=== PATIENT | female | born 2000 | race African-American/Black ===

== ENCOUNTER 2021-11-27 17:33 | Emergency (ER) | payer OTHER, SELFPAY ==
--- NOTE | ~2021-11-27 | CT_ITS ---
EXAMINATION: CT abdomen pelvis w con DATE: 11/27/2021 21:58 INDICATION: abd pain TECHNIQUE: Computed tomography (CT) of the abdomen and pelvis was performed with 100 mL Omnipaque-350 intravenous contrast. Automated exposure control and iterative reconstruction technique were employe d. The dose-length product was 1001.92 mGy-cm. COMPARISON: None. FINDINGS: Lower thorax: Unremarkable Liver: Normal. Biliary/Gallbladder: Gallbladder is absent. No bile duct dilation. Pancreas: No mass or duct dilation. Spleen: Normal. Adrenals:No mass. Kidneys: No mass, stone, or hydronephrosis. GI tract: No small or large bowel dilation. Normal appendix. Mesentery/Peritoneum: No ascites, mass, or free air. Retroperitoneum: No mass. Pelvis: Retroverted uterus, otherwise the pelvic organs are within normal limits. The distal ureters are difficult to trace accurately due to uterine position. Punctate calcification near the right UVJ. Soft Tissues: Soft tissues and body wall unremarkable. Bones: No acute osseous finding. IMPRESSION: No definite acute abdominopelvic process detected. Distal ureters are poorly visualized. Punctate everett cification near the right UVJ could be in the pathway of the right distal ureter, however there is no hydronephrosis or inflammatory change in the right collecting system. Reviewed, dictated and finalized at location K. IMPRESSION: No definite acute abdominopelvic process detected. Distal ureters are poorly vi sualized. Punctate calcification near the right UVJ could be in the pathway of the right distal ureter, however there is no hydronephrosis or inflammatory jailene nge in the right collecting system.
[2021-11-27 17:47] VITALS: BP 101/61; PULSE 93; RESP 18; TEMP 36.4; O2SAT 100
[2021-11-27 18:14] LABS: Basophils Percent Auto 0.4 % (0.2-1.2); Eosinophils Absolute Auto 0.1 K/mm3 (0-0.3); Eosinophils Percent Auto 1.1 % (0-4.4); Hematocrit 44.6 % (37.0-47.0); Hemoglobin 14.4 g/dL (12.0-15.0); Immature Granulocyte Absolute 0.05 K/mm3 (0.00-0.031); Immature Granulocyte Percent A 0.5 % (0-0.5); Lymphocytes Absolute Auto 1.74 K/mm3 (0.9-3.2); Lymphocytes Percent Auto 17.1 % (18.3-44.2); Mean Corpuscular HGB Conc 32.3 g/dl (32-36); Mean Corpuscular Volume 95.9 fl (80-100); Mean Platelet Volume 9.8 fl (7.4-10.4); Monocytes Absolute Auto 0.7 K/mm3 (0.1-0.6); Neutrophils Absolute Auto 7.5 K/mm3 (1.3-6.7); Neutrophils Percent Auto 73.9 % (45.5-73.1); Platelet Count Result 279 k/mm3 (150-375); Red Blood Count 4.65 M/mm3 (4.2-5.4); Red Cell Distribution Width 12.5 % (11.5-14.5); White Blood Count 10.2 K/mm3 (4.5-10.0)
[2021-11-27 18:17] LABS: Appearance Urine Clear (Clear); Bilirubin Urine Negative (Negative); Blood Urine Negative (Negative); Color Urine Yellow (Yellow); Glucose Urine UA Negative (Negative); Ketones Urine Negative (Negative); Leukocyte Esterase Ur Trace LEU/UL (Negative); Nitrate Urine Negative (Negative); Protein Urine Negative (Negative); Specific Grav Ur 1.015 (1.001-1.035); Urobilinogen Urine 0.2 mg/dL (<2.0)
[2021-11-27 18:27] LABS: Alanine Aminotransferase 62 U/L (6-35); Albumin Level 4.6 g/dL (3.5-5.1); Alkaline Phosphatase 77 U/L (38-126); Anion Gap 8 mmol/L (8-16); Aspartate Amino Transferase 53 U/L (14-36); Bilirubin,Total 0.5 mg/dL (0.2-1.3); Blood Urea Nitrogen 4 mg/dL (7-17); Calcium 9.7 mg/dL (8.4-10.2); Carbon Dioxide 31 mmol/L (22-30); Chloride 96 mmol/L (98-107); Estimated CRCL calculation 152 ml/min; Estimated Glomerular Filt Rate > 60; Glucose 100 mg/dL (65-110); Lipase 46 U/L (23-300); Potassium 3.6 mmol/L (3.4-5.0); Sodium 135 mmol/L (137-145)
[2021-11-27 18:28] LABS: Mucus Urine Rare /lpf; RBC Urine 0-2 /hpf (0-2); Squamous Epithelial Cell Urine Occasional /hpf (Few); WBC Urine 0-3 /hpf
[2021-11-27 18:45] LABS: Add Urine Microscopic? NO
--- NOTE | 2021-11-27 21:11 | ED.ABDPAIN ---
HPI - Abdominal Pain General Chief Complaint: Abdominal Pain <Caprice Kerr PA-C - Last Filed: 11/27/21 22:26> Stated Complaint: abd pain, back pain, frequent urination <Caprice Kerr PA-C - Last Filed: 11/27/21 22:26> Time Seen by Provider: 11/27/21 21:06 <Caprice Kerr PA-C - Last Filed: 11/27/21 22:26> Source: patient <ABHAY Valentino Last Filed: 11/27/21 22:26> Mode of arrival: ambulatory <Caprice Kerr PA-C - Last Filed: 11/27/21 22:26> Limitations: no limitations <Caprice Kerr PA-C - Last Filed: 11/27/21 22:26> History of Present Illness HPI narrative: This is a 20 year old female that presents to the ER for abdominal pain present today. Associated with back pain and urinary frequency. Denies fever, vomiting or hematuria. <Caprice Kerr PA-C - Last Filed: 11/27/21 22:26> Related Data Allergies/Adverse Reactions: Allergies Allergy/AdvReac Type Severity Reaction Status Date / Time No Known Allergies Allergy Verified 11/27/21 17:53 <Caprice Kerr PA-C - Last Filed: 11/27/21 22:26> Review of Systems Review of Systems: CONSTITUTIONAL: Denies fever GASTROINTESTINAL: Reports abdominal pain. Denies nausea, vomiting, or diarrhea. GENITOURINARY: Denies dysuria or hematuria. <Caprice Kerr PA-C - Last Filed: 11/27/21 22:26> All systems reviewed & are unremarkable except as noted in HPI and below <Caprice Kerr PA-C - Last Filed: 11/27/21 22:26> [facility] Past Medical History Medical History: Medical History (Updated 11/28/21 @ 00:00 by Donita Reed) No active medical problems <Caprice Kerr PA-C - Last Filed: 11/27/21 22:26> Social History Social History: Social History (Updated 11/27/21 @ 21:13 by Caprice Kerr PA-C) Smoking status: Never smoker <Caprice Kerr PA-C - Last Filed: 11/27/21 22:26> Exam Narrative: GENERAL: Well-appearing, well-nourished, and in no acute distress. HEAD: Normocephalic, atraumatic. EYES: EOMI. CHEST: Clear to auscultation. No respiratory distress. No wheezes rales or rhonchi HEART: Regular rate and rhythm. No murmur heard. Normal peripheral pulses. ABDOMEN: Soft, nondistended, normal active bowel sounds. Mild tenderness palpation in epigastrium, without guarding. No CVA tenderness BACK: Tender to palpation of right thoracic paraspinal musculature EXTREMITIES: Normal range of motion. No edema. SKIN: Warm, dry, no rash. NEURO: No focal deficits. Alert and oriented x3. PSYCH: Normal mood and affect <Caprice Kerr PA-C - Last Filed: 11/27/21 22:26> Course DIRECTOR OF FOOD AND NUTRITION/PA Physician Supervision For this patient encounter, I reviewed the DIRECTOR OF FOOD AND NUTRITION or PA documentation, treatment plan, and medical decision making <Mike Donahue MD - Last Filed: 11/28/21 03:15> Vital Signs Vital signs: Vital Signs Temperature 97.6 F 11/27/21 17:47 Pulse Rate 93 11/27/21 17:47 Respiratory Rate 18 11/27/21 17:47 Blood Pressure 101/61 11/27/21 17:47 Pulse Oximetry 100 11/27/21 17:47 Oxygen Delivery Room Air 11/27/21 17:47 Temperature 97.6 F 11/27/21 17:47 Pulse Rate 84 11/27/21 23:06 Respiratory Rate 17 11/27/21 23:06 Blood Pressure 132/73 11/27/21 23:06 Pulse Oximetry 96 11/27/21 23:06 Oxygen Delivery Room Air 11/27/21 17:47 <Caprice Kerr PA-C - Last Filed: 11/27/21 22:26> Vital Signs Temperature 97.6 F 11/27/21 17:47 Pulse Rate 93 11/27/21 17:47 Respiratory Rate 18 11/27/21 17:47 Blood Pressure 101/61 11/27/21 17:47 Pulse Oximetry 100 11/27/21 17:47 Oxygen Delivery Room Air 11/27/21 17:47 Temperature 97.6 F 11/27/21 17:47 Pulse Rate 84 11/27/21 23:06 Respiratory Rate 17 11/27/21 23:06 Blood Pressure 132/73 11/27/21 23:06 Pulse Oximetry 96 11/27/21 23:06 Oxygen Delivery Room Air 11/27/21 17:47 <Mike Donahue MD - Last Filed: 11/28/21 03:15> MDM - Abdominal Pain MDM Narrati
[2021-11-27] MEDS: FAMOTIDINE 20 MG/2 ML VIAL IV PUSH (21:35)
[2021-11-27 23:06] VITALS: BP 132/73; PULSE 84; RESP 17; O2SAT 96
== END 2021-11-27 23:07 | disposition home or self-care (01) ==
PROVIDERS: Family Medicine; Emergency Provider Emergency Medicine
DX: R10.9 Unspecified abdominal pain (principal)
CPT/HCPCS: 36415; 74177; 80053; 81003; 81025; 83690; 85025; 96365; 96375; 99284; J0131; Q9967

== ENCOUNTER 2022-05-19 23:48 | Observation (INO) | payer OTHER, SELFPAY ==
[2022-05-20] VITALS (8 sets, daily range): BP systolic 92–126; BP diastolic 61–75; PULSE 75–99; RESP 15–16; TEMP 36.6–36.7; O2SAT 100; BMI 37.1
--- NOTE | 2022-05-20 00:04 | ED.ABDPAIN ---
HPI - Abdominal Pain General Chief Complaint: Vaginal Bleeding Stated Complaint: Vaginal Bleeding Time Seen by Provider: 05/19/22 23:50 History of Present Illness HPI narrative: 21-year-old female presented to the emergency department from an outside hospital for evaluation of persistent vaginal bleeding after elective . Patient was approximate 9 weeks and on the was started on Cytotec. Patient started taking the Cytotec on the . Patient states she has had some vaginal bleeding since then. Patient states up until Friday she was just having spotting but since Friday she had more heavy vaginal bleeding. Patient initially presented to an outside hospital and due to the concern for heavy vaginal bleeding and no access to ultrasound patient was transferred to our emergency department and to be seen by OB. Upon arrival to the emergency department patient is denying any abdominal complaints at this time. Patient does report headache. Patient also believes that her vaginal bleeding has improved. Related Data Allergies Allergy/AdvReac Type Severity Reaction Status Date / Time No Known Allergies Allergy Verified 11/27/21 17:53 Review of Systems Review of Systems: CONSTITUTIONAL: Denies fever, chills, or sweats. EYES: Denies visual changes, redness, or discharge. ENT: Denies rhinorrhea, congestion, sore throat, or otalgia. CARDIOVASCULAR: Denies chest pain, palpitations, or edema. RESPIRATORY: Denies cough or dyspnea. GASTROINTESTINAL: Denies abdominal pain, nausea, vomiting, or diarrhea. GENITOURINARY: See HPI SKIN: Denies rash or itching. MUSCULOSKELETAL: Denies back pain, joint pain, or myalgia. NEUROLOGIC: See HPI PMFSH Past Medical History Medical History (Updated 05/20/22 @ 01:13 by Mike Donahue MD) No active medical problems Social History Social History (Updated 11/27/21 @ 21:13 by Caprice Kerr PA-C) Smoking status: Never smoker Exam Narrative: APPEARANCE: Well appearing, no pain, no distress, well-nourished. HEAD: normocephalic, atraumatic. EYES: PERRLA/EOMI, conjunctivae clear. NOSE: Normal no drainage NECK: Supple. No adenopathy, no masses. RESPIRATORY: Airway patent, respirations nonlabored. Clear to auscultation bilaterally, no rales, rhonchi, wheezing. CARDIOVASCULAR: Regular rate and rhythm without murmurs rubs or gallops. ABDOMINAL: Soft, nontender, nondistended, normal bowel sounds Genitourinary: No significant vaginal bleeding. No large amount of clot in the vaginal vault. No refilling of the vaginal vault. MUSCULOSKELETAL: Moves all extremities. Strength/ROM intact, No edema, No calf tenderness. NEURO: Alert. Cranial nerves II through XII intact. SKIN: Warm, dry. Normal Color Course Course Emergency Course: Patient's undergarment that she wore during transport had no large clots but was blood-tinged. On pelvic exam patient had no large vaginal clots. Case was discussed with OB and they wanted the patient to be started on misoprostol admitted for observation, provided Mill[place] and Zofran for pain control with a CBC and quant in the morning. Patient was updated on the plan for admission. Patient's vital signs were stable and patient was in no distress at time of admission. Patient's hemoglobin was measured at 11.3 at the outside hospital and was down to 10.2 on my recheck. Type and screen was ordered. Vital Signs Vital signs: Vital Signs Pulse Rate 95 05/20/22 00:04 Respiratory Rate 16 05/20/22 00:04 Blood Pressure 124/74 05/20/22 00:04 Pulse Oximetry 100 05/20/22 00:04 Pulse Rate 86 05/20/22 00:32 Respiratory Rate 16 05/20/22 00:32 Blood Pressure 126/63 05/20/22 00:32 Pulse Oximetry 100 05/20/22 00:32 Oxygen Delivery Room Air 05/20/22 00:06 MDM - Abdominal Pain Lab Data 05/20/22 00:14 05/20/22 00:14 Discharge Plan Discharge Clinical Impression: Vaginal bleeding Patient Disposition:
[2022-05-20 00:27] LABS: Basophils Percent Auto 0.2 % (0.2-1.2); Eosinophils Absolute Auto 0.1 K/mm3 (0-0.3); Eosinophils Percent Auto 0.5 % (0-4.4); Hematocrit 30.2 % (37.0-47.0); Hemoglobin 10.2 g/dL (12.0-15.0); Immature Granulocyte Absolute 0.06 K/mm3 (0.00-0.031); Immature Granulocyte Percent A 0.5 % (0-0.5); Lymphocytes Absolute Auto 1.27 K/mm3 (0.9-3.2); Lymphocytes Percent Auto 10.6 % (18.3-44.2); Mean Corpuscular HGB Conc 33.8 g/dl (32-36); Mean Corpuscular Hemoglobin 32.1 pg (26-34); Mean Platelet Volume 9.7 fl (7.4-10.4); Monocytes Absolute Auto 0.8 K/mm3 (0.1-0.6); Monocytes Percent Auto 6.6 % (2.6-8.5); Neutrophils Absolute Auto 9.8 K/mm3 (1.3-6.7); Neutrophils Percent Auto 81.6 % (45.5-73.1); Platelet Count Result 261 k/mm3 (150-375); Red Blood Count 3.18 M/mm3 (4.2-5.4)
[2022-05-20] MEDS: ONDANSETRON INJ 4 MG/2 ML VIAL IV PUSH (00:33)
[2022-05-20] MEDS: SODIUM CHLORIDE 0.9% IV 1,000 ML 999 ML IV CONT (00:33)
[2022-05-20 00:38] LABS: Alanine Aminotransferase 22 U/L (6-35); Albumin Level 3.8 g/dL (3.5-5.1); Alkaline Phosphatase 62 U/L (38-126); Anion Gap 6 mmol/L (8-16); Aspartate Amino Transferase 24 U/L (14-36); Bilirubin,Total 0.5 mg/dL (0.2-1.3); Blood Urea Nitrogen 3 mg/dL (7-17); Calcium 8.3 mg/dL (8.4-10.2); Carbon Dioxide 27 mmol/L (22-30); Chloride 99 mmol/L (98-107); Estimated CRCL calculation 151 ml/min; Estimated Glomerular Filt Rate > 60; Glucose 103 mg/dL (65-110); Potassium 3.5 mmol/L (3.4-5.0); Sodium 132 mmol/L (137-145)
[2022-05-20 00:40] LABS: INR 1.1; Prothrombin Time 14.1 Seconds (11.1-14.7)
[2022-05-20 00:41] LABS: Partial Thromboplastin Time 29.9 SECONDS (22.3-36.8)
[2022-05-20] MEDS: miSOPROStol 200 MCG TABLET 800 MCG VAGINAL (00:49)
--- NOTE | 2022-05-20 01:47 | PC.NURSE ---
Updated Dr. Contreras of patient arrival to OB for overnight observation. Patient vital signs WNL upon arrival. Plan of care discussed and clarified. Order received.
[2022-05-20] MEDS: SODIUM CHLORIDE 0.9% IV 1,000 ML 125 ML IV CONT (03:02)
[2022-05-20 04:55] LABS: Basophils Percent Auto 0.2 % (0.2-1.2); Eosinophils Absolute Auto 0.1 K/mm3 (0-0.3); Eosinophils Percent Auto 0.6 % (0-4.4); Hematocrit 25.4 % (37.0-47.0); Hemoglobin 8.4 g/dL (12.0-15.0); Immature Granulocyte Absolute 0.04 K/mm3 (0.00-0.031); Immature Granulocyte Percent A 0.4 % (0-0.5); Lymphocytes Absolute Auto 1.45 K/mm3 (0.9-3.2); Lymphocytes Percent Auto 14.6 % (18.3-44.2); Mean Corpuscular HGB Conc 33.1 g/dl (32-36); Mean Corpuscular Hemoglobin 31.9 pg (26-34); Mean Corpuscular Volume 96.6 fl (80-100); Mean Platelet Volume 9.9 fl (7.4-10.4); Monocytes Absolute Auto 0.9 K/mm3 (0.1-0.6); Monocytes Percent Auto 8.8 % (2.6-8.5); Neutrophils Absolute Auto 7.5 K/mm3 (1.3-6.7); Neutrophils Percent Auto 75.4 % (45.5-73.1); Platelet Count Result 220 k/mm3 (150-375); Red Blood Count 2.63 M/mm3 (4.2-5.4); Red Cell Distribution Width 13.1 % (11.5-14.5); White Blood Count 9.9 K/mm3 (4.5-10.0)
--- NOTE | 2022-05-20 05:39 | PC.NURSE ---
Notified Dr. Contreras of patient morning lab work results. Also notified of vital signs overnight. Patient having adequate urine output and small lochia. Patient denies any clots throughout the night. Pat is resting comfortably and denies any pain.
--- NOTE | 2022-05-24 11:22 | PM.GYNPNOP ---
SENIOR RESEARCH ASSOCIATE - A/P Assessment and plan (1) Vaginal bleeding: Code(s): N93.9 - Abnormal uterine and vaginal bleeding, unspecified Status: Acute Plan s/p miscarriage hemodynamicly stable Discharge home with pelvic rest precautions. Follow up in 2-4 weeks. Postoperative Postoperative status: doing well Time Spent With Patient Time: Total time spent is greater than 50% in coordination of care (as documented) at patient's floor/unit and/or counseling patient: Time with patient: less than 15 minutes SENIOR RESEARCH ASSOCIATE- PN:Subj Post-Op Subjective Date/time seen: - 744 Interval history: She denies complaints. No lightheadedness or dizziness. Has had minimal bleeding since admission. Exam Const: General: comfortable and no acute distress Eyes: General: appearance normal, both eyes and all related structures Resp: Effort & Inspection: normal respiratory effort GI: Other: nontender, no suprapubic tenderness : Other: perineum minimum bleeding on pad. Extrem: General: normal to inspection and no calf tenderness SENIOR RESEARCH ASSOCIATE - PN: Obj Data Labs 05/20/22 04:44 05/20/22 00:14 Amg Follow-up Billing Hospital Follow-up Hospital Follow-up: [address] [facility]
--- NOTE | 2022-05-24 11:49 | PM.OBTRLD ---
OB - Triage/Final Diagnosis Visit Information Comments/Additional reasons for admission: I have assessed the risk for this patient, Sandy Fritz, and determined that she would benefit from observation care. Evaluation Laboratory results: Laboratory Tests 05/20/22 05/20/22 05/20/22 00:14 00:14 00:14 WBC 12.0 H RBC 3.18 L Hgb 10.2 L D Hct 30.2 L MCV 95.0 MCH 32.1 MCHC 33.8 RDW 13.0 Plt Count 261 MPV 9.7 Immature Gran % (Auto) 0.5 Neut % (Auto) 81.6 H Lymph % (Auto) 10.6 L [place] % (Auto) 6.6 Eos % (Auto) 0.5 Baso % (Auto) 0.2 Lymph # (Auto) 1.27 [place] # (Auto) 0.8 H Eos # (Auto) 0.1 Baso # (Auto) 0.0 Abs Immat Gran (auto) 0.06 H Absolute Neuts (auto) 9.8 H Absolute Nucleated RBC 0.0 Nucleated RBC % 0.0 PT 14.1 INR 1.1 APTT 29.9 Sodium 132 L Potassium 3.5 Chloride 99 Carbon Dioxide 27 Anion Gap 6 L BUN 3 L Creatinine 0.60 L Estim Creat Clear Calc 151 Estimated GFR > 60 Glucose 103 Calcium 8.3 L Total Bilirubin 0.5 AST 24 ALT 22 Alkaline Phosphatase 62 Total Protein 7.0 Albumin 3.8 Beta HCG, Quant 2832.10 Blood Type Antibody Screen 05/20/22 05/20/22 05/20/22 00:14 04:44 04:44 WBC 9.9 RBC 2.63 L Hgb 8.4 L Hct 25.4 L MCV 96.6 MCH 31.9 MCHC 33.1 RDW 13.1 Plt Count 220 MPV 9.9 Immature Gran % (Auto) 0.4 Neut % (Auto) 75.4 H Lymph % (Auto) 14.6 L [place] % (Auto) 8.8 H Eos % (Auto) 0.6 Baso % (Auto) 0.2 Lymph # (Auto) 1.45 [place] # (Auto) 0.9 H Eos # (Auto) 0.1 Baso # (Auto) 0.0 Abs Immat Gran (auto) 0.04 H Absolute Neuts (auto) 7.5 H Absolute Nucleated RBC 0.0 Nucleated RBC % 0.0 PT INR APTT Sodium Potassium Chloride Carbon Dioxide Anion Gap BUN Creatinine Estim Creat Clear Calc Estimated GFR Glucose Calcium Total Bilirubin AST ALT Alkaline Phosphatase Total Protein Albumin Beta HCG, Quant 2430.10 Blood Type A Positive Antibody Screen Negative Final Diagnosis (1) Incomplete : Code(s): O03.4 - Incomplete spontaneous without complication Status: Acute
== END 2022-05-20 09:34 | disposition home or self-care (01) ==
LOC: ANHED 05-20 00:07 → ANHLDR 05-20 00:31
PROVIDERS: Admitting Provider Obstetrics & Gynecology; Emergency Provider Emergency Medicine; Visit Provider Obstetrics & Gynecology
DX: O07.1 Delayed or excessive hemorrhage following failed attempted termination of pregnancy (principal); R51.9 Headache, unspecified
CPT/HCPCS: 36415; 80053; 84702; 85025; 85610; 85730; 86850; 86900; 86901; 96361; 96374; 99285; A9270; G0378; G0379; J2405; J7030

== ENCOUNTER 2025-03-06 20:50 | Emergency (ER) | payer OTHER, SELFPAY ==
--- OUTSIDE RECORDS SUMMARY | 2024-06-09 03:00 | XMS_ITS ---
Author Organization [facility]ly [facility], later [facility] Address [address] [place] [address] Care Team Providers Care Environmental Protection Forester Name Role Phone Ashok Guthrie Primary Care Provider REASON FOR VISIT Labs- and EKG Social History Sex Assigned At : Social History Observation Description Sex Assigned At Female Encounters Encounter Location Date Provider Diagnosis [address] [address] 06/09/2024 Ashok Guthrie Plan Of Treatment No Information Progress Notes * Sandy PHILLIPSDOB: [birth year] (24 yo F)Acc No.[id number]:06/09/2024 UNLOCKED PROGRESS NOTE Patient: Sandy KAUFMAN Provider: Moraima Guthrie :2000 A ge:23 Y S ex:Female Date:06/09/2024 [id number] Structured Data:Is there a n terrell you would prefer we call you? (Nombre que prefiere usar) : No Subjective: * Chief Complaints: * 1 . Labs- and EKG. * Medical History: Objective: * Vitals: Assessment: Plan: * Treatment: * * Electronic signature of Melba Guthrie , [id number] on 03/06/2025 at 08:53 PM EXHIBITIONS AND COLLECTIONS MANAGER Sign off status: Pending * Provider: Moraima Guthrie Date: 0 06/09/2024 Generated for Albertina leiva/Linnette/Olga on: 1 05/06/2024 08:53 PM EXHIBITIONS AND COLLECTIONS MANAGER
--- OUTSIDE RECORDS SUMMARY | 2024-06-11 03:00 | XMS_ITS ---
Author Organization [facility] Address [address] [place] [address] Care Team Providers Care Receiving And Processing Supervisor Name Role Phone Ashok Guthrie Primary Care Provider REASON FOR VISIT Labs and EKG Social History Sex Assigned At : Social History Observation Description Sex Assigned At Female Encounters Encounter Location Date Provider Diagnosis [address] [address] 06/11/2024 Ashok Guthrie Plan Of Treatment No Information Progress Notes * Sandy PHILLIPSDOB: [birth year] (24 yo F)Acc No.[id number]:06/11/2024 UNLOCKED PROGRESS NOTE Patient: Sandy KAUFMAN Provider: Moraima Guthrie :2000 A ge:23 Y S ex:Female Date:06/11/2024 [id number] Structured Data:Is there a n terrell you would prefer we call you? (Nombre que prefiere usar) : No Subjective: * Chief Complaints: * 1 . Labs and EKG. * Medical History: Objective: * Vitals: Assessment: Plan: * Treatment: * * Electronic signature of Melba Guthrie , [id number] on 03/06/2025 at 08:53 PM LOWERATOR OPERATOR Sign off status: Pending * Provider: Moraima Guthrie Date: 0 06/11/2024 Generated for Albertina leiva/Linnette/Olga on: 1 05/06/2024 08:53 PM LOWERATOR OPERATOR
--- OUTSIDE RECORDS SUMMARY | 2024-07-14 05:20 | XMS_ITS ---
Author Organization [facility] Address [address] [place] [address] Care Team Providers Care Covered Buckle Assembler Name Role Phone Ashok Guthrie Primary Care Provider [phone] REASON FOR VISIT 4 week F/U Social History Sex Assigned At : Social History Observation Description Sex Assigned At Female Encounters Encounter Location Date Provider Diagnosis [address] [address] 07/14/2024 Ashok Guthrie Plan Of Treatment No Information Progress Notes * Sandy PHILLIPSDOB: [birth year] (24 yo F)Acc No.[id number]:07/14/2024 UNLOCKED PROGRESS NOTE Progress Notes Patient: Sandy KAUFMAN Provider: Moraima Guthrie :2000 A ge:23 Y S ex:Female Date:07/14/2024 [id number] Structured Data:Is there a n terrell you would prefer we call you? (Nombre que prefiere usar) : No Subjective: * Chief Complaints: * 1 . 4 week F/U. * Medical History: Objective: * Vitals: Assessment: Plan: * Treatment: * * Electronic signature of Melba Guthrie , [id number] on 03/06/2025 at 08:53 PM INSULATION BLANKET MAKER Sign off status: Pending * Provider: Moraima Guthrie Date: 0 07/14/2024 Generated for Albertina leiva/Linnette/Olga on: 1 05/06/2024 08:53 PM INSULATION BLANKET MAKER
--- OUTSIDE RECORDS SUMMARY | 2024-12-22 18:00 | XMS_ITS | Continuity of Care Document ---
Author Organization [facility] Address [address] [place] [phone] Phone Care Team Providers Care Warehouse Shipping Clerk Name Role Phone Anitra GEORGE, FACC, Frank Unavailable Unavailab le Procedures Procedure Date ELECTROCARDIOGRAM REPORT Advance Directives Directive Yes / No Effective Date File Name No Information Encounters Encounter Description Practice Location Reason(s) For Visit Diagnoses Date Provider Providers Copied on Encounter [facility], [address] [place] [address], [id number], tel:[phone] [facility] ER No Information Anitra Marie. [address] [place] [address], [id number], . tel:[phone] Referring Provider: Frank Ayoub, [facility] [place], [address]. tel:[phone] Family History Family Member Type Diagnosis Age At Onset No Information Payers Payer name Insurance type Covered alliance party ID Authoriza tion(s) [employer]ETNA [facility] CI [id number] Social History Type Description Quantity Date Captured Comments Sex Female Smoking Status No Information Chief Complaint And Reason For Visit No Information Reason For Referral Reason For Referral No Information History Of Present Illness Encounter Date Complaint History Of Prese nt Illness No Information Functional Status Date Functional Assessmen t No Information Instructions Date Instruction Additional Infor mation No Information Assessments Type Assessment Date No Information Patient Care Teams Name Effective Dates (start - stop) Status Members No Information
--- OUTSIDE RECORDS SUMMARY | 2024-12-22 18:00 | XMS_ITS | Continuity of Care Document ---
Author Organization [facility] Address [address] [place] [phone] Phone Care Team Providers Care Nurse Transplant Name Role Phone Anitra GEORGE, FACC, Frank Unavailable Unavailab le Procedures Procedure Date ELECTROCARDIOGRAM REPORT Advance Directives Directive Yes / No Effective Date File Name No Information Encounters Encounter Description Practice Location Reason(s) For Visit Diagnoses Date Provider Providers Copied on Encounter [facility], [address] [place] [address], [id number], tel:[phone] [facility] ER No Information Anitra Marie. [address] [place] [address], [id number], . tel:[phone] Referring Provider: Frank Ayoub, [facility] [place], [address]. tel:[phone] Family History Family Member Type Diagnosis Age At Onset No Information Payers Payer name Insurance type Covered democrat ID Authoriza tion(s) AETNA [facility] CI [id number] Social History Type Description Quantity Date Captured [...]
--- OUTSIDE RECORDS SUMMARY | 2024-12-22 18:00 | XMS_ITS | Continuity of Care Document ---
Author Organization [facility] Address [address] [place] [phone] Phone Care Team Providers Care Can Crimper Name Role Phone Anitra GEORGE, FACC, Frank Unavailable Unavailab le Procedures Procedure Date ELECTROCARDIOGRAM REPORT Advance Directives Directive Yes / No Effective Date File Name No Information Encounters Encounter Description Practice Location Reason(s) For Visit Diagnoses Date Provider Providers Copied on Encounter [facility], [address] [place] [address], [id number], tel:[phone] [facility] ER No Information Anitra Marie. [address] [place] [address], [id number], . tel:[phone] Referring Provider: Frank Ayoub, [facility] [place], [address]. tel:[phone] Family History Family Member Type Diagnosis Age At Onset No Information Payers Payer name Insurance type Covered democrat ID Authoriza tion(s) [employer] [facility] CI [id number] Social History Type Description Quantity Date Captured [...]
--- OUTSIDE RECORDS SUMMARY | 2024-12-22 18:00 | XMS_ITS | Continuity of Care Document ---
Author Organization [facility] Address [address] [place] [phone] Phone Care Team Providers Care Belt Cleaner Name Role Phone Anitra GEORGE, FACC, Frank Unavailable Unavailab le Procedures Procedure Date ELECTROCARDIOGRAM REPORT Advance Directives Directive Yes / No Effective Date File Name No Information Encounters Encounter Description Practice Location Reason(s) For Visit Diagnoses Date Provider Providers Copied on Encounter [facility], [address] [place] [address], [id number], tel:[phone] [facility] ER No Information Anitra Marie. [address] [place] [address], [id number], . tel:[phone] Referring Provider: Frank Ayoub, [facility] [place], [address]. tel:[phone] Family History Family Member Type Diagnosis Age At Onset No Information Payers Payer name Insurance type Covered alliance party ID Authoriza tion(s) [employer] [facility] CI [id number] Social History Type Description Quantity Date Captured [...]
--- OUTSIDE RECORDS SUMMARY | 2024-12-22 18:00 | XMS_ITS | Continuity of Care Document ---
Author Organization [facility] Address [address] [place] [phone] Phone Care Team Providers Care Transplant Nurse Practitioner Name Role Phone Anitra GEORGE, FACC, Frank Unavailable Unavailab le Procedures Procedure Date ELECTROCARDIOGRAM REPORT Advance Directives Directive Yes / No Effective Date File Name No Information Encounters Encounter Description Practice Location Reason(s) For Visit Diagnoses Date Provider Providers Copied on Encounter [facility], [address] [place] [address], [id number], tel:[phone] [facility] ER No Information Anitra Marie. [address] [place] [address], [id number], . tel:[phone] Referring Provider: Frank Ayoub, [facility] [place], [address]. tel:[phone] Family History Family Member Type Diagnosis Age At Onset No Information Payers Payer name Insurance type Covered green party ID Authoriza tion(s) [employer] [facility] CI [id number] Social History Type Description Quantity Date Captured [...]
--- OUTSIDE RECORDS SUMMARY | 2024-12-22 18:00 | XMS_ITS | Continuity of Care Document ---
Author Organization [facility] Address [address] [place] [phone] Phone Care Team Providers Care Automotive Electrician Helper Name Role Phone Anitra GEORGE, FACC, Frank Unavailable Unavailab le Procedures Procedure Date ELECTROCARDIOGRAM REPORT Advance Directives Directive Yes / No Effective Date File Name No Information Encounters Encounter Description Practice Location Reason(s) For Visit Diagnoses Date Provider Providers Copied on Encounter [facility], [address] [place] [address], [id number], tel:[phone] [facility] No Information Anitra Marie. [address] [place] [address], [id number], . tel:[phone] Referring Provider: Frank Ayoub, [facility] [place], [address]. tel:[phone] Family History Family Member Type Diagnosis Age At Onset No Information Payers Payer name Insurance type Covered alliance party ID Authoriza tion(s) AETNA [facility] CI [id number] Social History Type Description Quantity Date Captured [...]
--- OUTSIDE RECORDS SUMMARY | 2024-12-22 18:00 | XMS_ITS | Continuity of Care Document ---
Author Organization [facility] Address [address] [place] [phone] Phone Care Team Providers Care Hotel Or Motel Room Service Supervisor Name Role Phone Anitra GEORGE, FACC, Frank Unavailable Unavailab le Procedures Procedure Date ELECTROCARDIOGRAM REPORT Advance Directives Directive Yes / No Effective Date File Name No Information Encounters Encounter Description Practice Location Reason(s) For Visit Diagnoses Date Provider Providers Copied on Encounter [facility], [address] [place] [address], [id number], tel:[phone] [facility] ER No Information Anitra Marie. [address] [place] [address], [id number], . tel:[phone] Referring Provider: Frank Ayoub, [facility] [place], [address]. tel:[phone] Family History Family Member Type Diagnosis Age At Onset No Information Payers Payer name Insurance type Covered constitution party ID Authoriza tion(s) AETNA [facility] CI [id number] Social History Type Description Quantity Date Captured [...]
--- OUTSIDE RECORDS SUMMARY | 2024-12-22 18:00 | XMS_ITS | Continuity of Care Document ---
Author Organization [facility] Address [address] [place] [phone] Phone Care Team Providers Care Fun House Operator Name Role Phone Anitra GEORGE, FACC, Frank Unavailable Unavailab le Procedures Procedure Date ELECTROCARDIOGRAM REPORT Advance Directives Directive Yes / No Effective Date File Name No Information Encounters Encounter Description Practice Location Reason(s) For Visit Diagnoses Date Provider Providers Copied on Encounter [facility], [address] [place] [address], [id number], tel:[phone] [facility] ER No Information Anitra Marie. [address] [place] [address], [id number], . tel:[phone] Referring Provider: Frank Ayoub, [facility] [place], [address]. tel:[phone] Family History Family Member Type Diagnosis Age At Onset No Information Payers Payer name Insurance type Covered constitution party ID Authoriza tion(s) AETNA [facility] CI [id number] Social History Type Description Quantity Date Captured [...]
--- OUTSIDE RECORDS SUMMARY | 2024-12-22 18:00 | XMS_ITS | Continuity of Care Document ---
Author Organization [facility] Address [address] [place] [phone] Phone Care Team Providers Care Crop Duster Name Role Phone Anitra GEORGE, FACC, Frank Unavailable Unavailab le Procedures Procedure Date ELECTROCARDIOGRAM REPORT Advance Directives Directive Yes / No Effective Date File Name No Information Encounters Encounter Description Practice Location Reason(s) For Visit Diagnoses Date Provider Providers Copied on Encounter [facility], [address] [place] [address], [id number], tel:[phone] [facility] ER No Information Anitra Marie. [address] [place] [address], [id number], . tel:[phone] Referring Provider: Frank Ayoub, [facility] [place], [address]. tel:[phone] Family History Family Member Type Diagnosis Age At Onset No Information Payers Payer name Insurance type Covered constitution party ID Authoriza tion(s) AETNA [facility] CI [id number] Social History Type Description Quantity Date Captured [...]
--- OUTSIDE RECORDS SUMMARY | 2024-12-22 18:00 | XMS_ITS | Continuity of Care Document ---
Author Organization [facility] Address [address] [place] [phone] Phone Care Team Providers Care Geophysical Engineer Name Role Phone Anitra GEORGE, FACC, Frank Unavailable Unavailab le Procedures Procedure Date ELECTROCARDIOGRAM REPORT Advance Directives Directive Yes / No Effective Date File Name No Information Encounters Encounter Description Practice Location Reason(s) For Visit Diagnoses Date Provider Providers Copied on Encounter [facility], [address] [place] [address], [id number], tel:[phone] [facility] ER No Information Anitra Marie. [address] [place] [address], [id number], . tel:[phone] Referring Provider: Frank Ayoub, [facility] [place], [address]. tel:[phone] Family History Family Member Type Diagnosis Age At Onset No Information Payers Payer name Insurance type Covered constitution party ID Authoriza tion(s) AETNA [facility] CI [id number] Social History Type Description Quantity Date Captured [...]
--- OUTSIDE RECORDS SUMMARY | 2024-12-22 18:00 | XMS_ITS | Continuity of Care Document ---
Author Organization [facility] Address [address] [place] [phone] Phone Care Team Providers Care Fabric Lay Out Worker Name Role Phone Anitra GEORGE, FACC, Frank Unavailable Unavailab le Procedures Procedure Date ELECTROCARDIOGRAM REPORT Advance Directives Directive Yes / No Effective Date File Name No Information Encounters Encounter Description Practice Location Reason(s) For Visit Diagnoses Date Provider Providers Copied on Encounter [facility], [address] [place] [address], [id number], tel:[phone] [facility] ER No Information Anitra Marie. [address] [place] [address], [id number], . tel:[phone] Referring Provider: Frank Ayoub, [facility] [place], [address]. tel:[phone] Family History Family Member Type Diagnosis Age At Onset No Information Payers Payer name Insurance type Covered republican ID Authoriza tion(s) AETNA [facility] CI [id number] Social History Type Description Quantity Date Captured [...]
--- NOTE | ~2025-03-06 | XR_ITS ---
Examination: XR chest 2V Clinical History: Chest pain Comparison: None Technique: PA and Lateral Findings: Cardiomediastinal silhouette normal size and configuration. Lungs clear. No acute bony abnormality. IMPRESSION: 1. No acute cardiopulmonary findings. Reviewed, dictated and finalized at location R. ICATIONS DEVELOPMENT CONSULTANT
--- NOTE | 2025-03-06 20:51 | ECG_ITS ---
Test Date: 2025-03-06 20:58:06 Measurements Intervals [place] Rate: 75 P: 59 [place]: 174 QRS: 68 QRSD: 95 T: 67 QT: 367 QTc: 410 Interpretive Statements SINUS RHYTHM No previous ECG available for comparison Electronically Signed On 03-07-2025 00:13:27 FULLER BRUSH WORKER by Yuval Bernard D.O
--- OUTSIDE RECORDS SUMMARY | 2025-03-06 20:54 | XMS_ITS | Clinical Summary ---
Author Organization [facility] Address [address] [place] [address] Phone Care Team Providers Care Product Blending Supervisor Name Role Phone Provider, None Primary Care Provider Unavailabl e Allergies No known active allergies Medications ibuprofen (MOTRIN) 800 MG Tablet Take 1 Tab by mouth every 8 hours as needed. 30 Tab 02/09/2017 Active ondansetron (ZOFRAN-ODT) 4 MG TABLET DISPERSIBLE Take 1 Tab by mouth every 8 hours as needed for Nausea. 10 Tab 03/19/2017 Active Active Problems Problem Noted Date Diagnosed Date (normal spontaneous vaginal delivery) 02/07 Immunizations Immunization Administration Dates Next Due Influenza Vaccine, Quadrivalent, PF 02/07/2017() Family History Medical History Relation Name Comments No Known Problems Father No Known Problems Maternal Grandfather Heart Attack Maternal Grandmother No Known Problems Mother No Known Problems Paternal Grandfather No Known Problems Paternal Grandmother Relation Name Status Comments Father Alive Maternal Grandfather Maternal Grandmother Mother Alive Paternal Grandfather Alive Paternal Grandmother Alive Social History Tobacco Use Types Packs/Day Years Used Date Smoking Tobacco: Never Smokeless Tobacco: Never Alcohol Use Standard Drinks/Week Comments No 0 (1 standard drink = 0.6 oz pur e alcohol) Comanche Depression Scale Answer Date Recorded Comanche Depression Scale Total 0 02/07/2017 Last EPDS Self Harm Result Not on file 02/07 Sexually Active Control Partners Comments Yes Male Comments No Sex and Gender Information Value Date Recorded Sex Assigned at Not on file Legal Sex Female 7:51 PM CDT Gender Identity Not on file Sexual Orientation Not on file Last Filed Vital Signs Vital Sign Reading Time Taken Comments Blood Pressure 130/82 11/03/2021 8:30 AM CDT Pulse 74 11/03/2021 8:30 AM CDT Temperature 36.9 C (98.4 F) 11/03/2021 8:30 AM CDT Respiratory Rate 18 11/03/2021 8:30 AM CDT Oxygen Saturation 99% 11/03/2021 8:30 AM CDT Inhaled Oxygen Concentration - - Weight 86.2 kg (190 lb) 11/03/2021 8:30 AM CDT Height 167.6 cm (5' 6) 11/03/2021 8:30 AM CDT Body Mass Index 30.67 11/03/2021 8:30 AM CDT Plan of Treatment Health Maintenance Due Date Last Done Comments Hepatitis C Virus (HCV) Screening 1998 Human Papillomavirus (HPV) Immunization (1 - 3-dose series) 2013 Influenza Immunization (#1) 2024 SARS-COV-2 Immunization ( season) 2024 Respiratory Syncytial Virus (RSV) Immunization (Adult) (1 - 1-dose 75+ series) 2073 Hepatitis B Immunization Completed 000, 02/04/2000, 07/11/1999, Additional history exists DTaP/Tdap/Td Immunization Discontinued 2012, 12/27/2002, 02/04/2000, Additional history exists TdaP Immunization Completed 02/01/2013 Meningococcal Immunization (ACWY) Completed 01/31/2015 Pneumococcal Immunization Combined Aged Out No longer eligible based on patient's age to complete this topic Rotavirus Immunization Aged Out No lo nger eligible based on patient's age to complete this topic Insurance MEDICAID AETNA [facility] Advance Directives * Full Code (Latest Code Status on File) Date Activated Date Inactivated Comments 02/07/2017 5:25 AM 02/07/2017 12:27 PM CPR-Full Treatment: FULL ARREST: Attempt Resuscitation/CPR wit intubation and mechanical ventilation. PRE-ARREST: Use entire range of life support measures to stabilize the patient. * Full Code Date Activated Date Inactivated Comments 02/05/2017 5:50 AM 02/05/2017 10:15 AM CPR-Full Treatment: FULL ARREST: Attempt Resuscitation/CPR wit intubation and mechanical ventilation. PRE-ARREST: Use entire range of life support measures to stabilize the patient. * Full Code Date Activated Date Inactivated Comments 01/16/2017 8:42 PM 01/17/2017 1:34 AM CPR-Full Edgar atment: FULL ARREST: Attempt Resuscitation/CPR wit intubation and mechanical ventilation. PRE-ARREST: Use entire range of life support measures to stabilize the patient. Care Teams Product Blending Supervisor Relationship Specialty Start Date End Date Provider, None [place] PCP - General 12/29/14
[2025-03-06 20:59] VITALS: BP 137/89; PULSE 94; RESP 18; TEMP 36.4; O2SAT 100
[2025-03-06 21:13] LABS: Hematocrit 38.5 % (37.0-47.0); Hemoglobin 12.9 g/dL (12.0-15.0); Immature Granulocyte Percent A 0.3 % (0-0.5); Lymphocytes Absolute Auto 1.99 K/mm3 (0.9-3.2); Mean Corpuscular HGB Conc 33.5 g/dl (32-36); Mean Corpuscular Hemoglobin 31.2 pg (26-34); Mean Corpuscular Volume 93.0 fl (80-100); Nucleated Red Blood Cells Absolute Auto 0.000 K/mm3 (0.0-0.012); Nucleated Red Blood Cells Perc 0.0 % (0.0-0.2); Platelet Count Result 266 k/mm3 (150-375); Red Blood Count 4.14 M/mm3 (4.2-5.4); White Blood Count 9.0 K/mm3 (4.5-10.0)
[2025-03-06 21:24] LABS: INR 1.1; Partial Thromboplastin Time 33.2 Seconds (22.3-36.8); Prothrombin Time 14.2 Seconds (11.1-14.7)
[2025-03-06 21:25] LABS: Alanine Aminotransferase 22 U/L (6-35); Albumin Level 4.3 g/dL (3.5-5.1); Alkaline Phosphatase 54 U/L (38-126); Anion Gap 6 mmol/L (4-12); Aspartate Amino Transferase 30 U/L (14-36); Bilirubin,Total 0.4 mg/dL (0.2-1.3); Blood Urea Nitrogen 5 mg/dL (7-17); Calcium 9.3 mg/dL (8.4-10.2); Carbon Dioxide 29 mmol/L (22-30); Chloride 102 mmol/L (98-107); Estimated CRCL calculation 133 ml/min; Estimated Glomerular Filt Rate > 60; Glucose 93 mg/dL (65-110); Lipase 66 U/L (23-300); Potassium 3.7 mmol/L (3.4-5.0); Sodium 137 mmol/L (137-145); Total Protein 7.4 g/dL (6.3-8.2)
[2025-03-06 21:36] LABS: Troponin I < 0.012 ng/mL (0.000-0.034)
[2025-03-06 21:43] VITALS: O2SAT 100
[2025-03-06 21:44] VITALS: BP 105/60; PULSE 66; PULSE 78; RESP 18; O2SAT 99
[2025-03-06] MEDS: ASPIRIN 81 MG CHEWABLE TABLET 324 MG PO (21:47)
[2025-03-06] MEDS: diazePAM INJ (*CRX) 10 MG/2 ML SYRINGE 5 MG IV PUSH (23:02)
[2025-03-06 23:03] LABS: NT Pro B Type Natriuretic Pept < 20 pg/mL (19.9-100)
--- NOTE | 2025-03-06 23:44 | ECG_ITS ---
Test Date: 2025-03-07 00:09:09 Measurements Intervals [place] Rate: 64 P: 48 [place]: 184 QRS: 52 QRSD: 90 T: 34 QT: 422 QTc: 438 Interpretive Statements SINUS RHYTHM Compared to ECG 03/06/2025 20:58:06 No significant changes Electronically Signed On 03-07-2025 11:23:01 BLACK POWDER GLAZING OPERATOR by Yuval Bernard D.O
--- NOTE | 2025-03-07 00:06 | ECG_ITS ---
Test Date: 2025-03-07 00:09:35 Measurements Intervals [place] Rate: 65 P: 43 [place]: 183 QRS: 53 QRSD: 90 T: 34 QT: 417 QTc: 435 Interpretive Statements SINUS RHYTHM Compared to ECG 03/06/2025 20:58:06 No significant changes Electronically Signed On 03-07-2025 00:13:44 BILINGUAL COUNTER SALES RETAIL by Yuval Bernard D.O
[2025-03-07 00:52] VITALS: BP 112/57; PULSE 64; RESP 18; O2SAT 100
[2025-03-07 00:58] LABS: Troponin I < 0.012 ng/mL (0.000-0.034)
--- NOTE | 2025-03-07 01:32 | ED_ITS ---
HPI - General Adult General Chief complaint: Chest Pain Stated complaint: CP Time Seen by Provider: 03/06/25 22:17 History of Present Illness HPI narrative: This is a 24-year-old female with a history of anxiety and panic attacks presenting with chest pain. Patient says she has been having left-sided chest pain all week. It is worse with pressure and movement. It is a dull pain. It comes and goes. It is nonradiating. Is not associated with exertion diaphoresis or vomiting. She has not taken anything for pain control. Related Data Home Medications ?Medication ?Instructions ?Recorded ?Confirmed ?Last Taken ?Type ibuprofen 600 mg tablet 600 mg PO Q6-8H PRN Pain 05/20/22 Unknown History prochlorperazine maleate 10 mg 10 mg PO Q8-10H PRN Anx iety 05/20/22 05/20/22 Unknown History tablet promethazine 25 mg tablet 25 mg PO Q4-6H PRN Nausea 05/20/22 Unknown History Allergies Allergy/AdvReac Type Severity Reaction Status Date / Time No Known Allergies Allergy Verified 03/06/25 20:50 [facility] Past Medical History Medical History No active medical problems Social History Social History Smoking status: Never smoker Substance use: never Spiritual care concerns: No Exam 2 Narrative: APPEARANCE: No apparent distress. Anxious appearing Head: atraumatic. EYES: EOMI, NOSE: Atraumatic NECK: Trachea midline RESPIRATORY: No increased rate of breathing clear to auscultation CARDIOVASCULAR: RRR, no peripheral edema ABDOMINAL: Non-distended soft nontender MUSCULOSKELETAl: No obvious deformities NEURO: Alert. Moving 4/4 extremities SKIN:: Warm, dry. Normal color PSYCHIATRIC: Anxious Course Vital Signs Vital signs: Vital Signs Temperature 97.5 F L 03/06/25 20:59 Pulse Rate 94 03/06/25 20:59 Respiratory Rate 18 03/06/25 20:59 Blood Pressure 137/89 03/06/25 20:59 Pulse Oximetry 100 03/06/25 20:59 Oxygen Delivery Room Air 03/06/25 20:59 Temperature 97.5 F L 03/06/25 20:59 Pulse Rate 64 03/07/25 00:52 Respiratory Rate 18 03/07/25 00:52 Blood Pressure 112/57 L 03/07/25 00:52 Pulse Oximetry 100 03/07/25 00:52 Oxygen Delivery Room Air 03/06/25 21:43 Medical Decision Making [facility] Narrative Medical decision making narrative: -Course: 24-year-old female history of anxiety and panic attacks presenting with 1 week of chest pain. She has reproducible chest pain on palpation. Pain is also reproducible with activation of her pectoral muscles. Patient was given 5 of Valium for anxiolysis. The rest of her workup including troponins BNP and D-dimer were negative. Chest x-ray and EKG are unremarkable. Patient was informed of her results instructed follow-up with her primary care physician. Given prescriptions for Motrin Tylenol. Given return precautions. -DDX includes but is not limited to: Chest wall pain, costochondritis, pectoral muscle strain, ACS pneumonia PE PTX -Co-morbidities complicating care: Anxiety, panic attacks Vital Signs Vital Signs: Vital Signs Temperature 97.5 F L 03/06/25 20:59 Pulse Rate 94 03/06/25 20:59 Respiratory Rate 18 03/06/25 20:59 Blood Pressure 137/89 03/06/25 20:59 Pulse Oximetry 100 03/06/25 20:59 Oxygen Delivery Room Air 03/06/25 20:59 Temperature 97.5 F L 03/06/25 20:59 Pulse Rate 64 03/07/25 00:52 Respiratory Rate 18 03/07/25 00:52 Blood Pressure 112/57 L 03/07/25 00:52 Pulse Oximetry 100 03/07/25 00:52 Oxygen Delivery Room Air 03/06/25 21:43 Lab Data 03/06/25 21:06 03/06/25 21:06 Labs: Lab Results 03/06/25 03/07/25 Range/Units 21:06 00:29 WBC 9.0 (4.5-10.0) K/mm3 RBC 4.14 L (4.2-5.4) M/mm3 Hgb 12.9 D (12.0-15.0) g/dL Hct 38.5 (37.0-47.0) % MCV 93.0 (80-100) fl MCH 31.2 (26-34) pg MCHC 33.5 (32-36) g/dl RDW 11.9 (11.5-14.5) % Plt Count 266 (150-375) k/mm3 MPV 9.5 (7.4-10.4) fl Immature Gran % (Auto) 0.3 (0-0.5) % Neut % (Auto) 66.0 (45.5-73.1) % Lymph % (Auto) 22.1 (18.3-44.2) % [place] % (Auto) 9.2 H (2.6-8.5) % Eos % (Auto) 2.0 (0-4.4) % Baso % (Auto) 0.4 (0.2-1.2) % Lymph # (Auto) 1.99 (0.9-3.2) K/mm3 [place] # (Auto) 0.8 H (0.1-0.6) K/mm3 Eos # (Auto) 0.2 (0-0.3) K/mm3 Baso # (Auto) 0.0 (0.0-0.1) K/mm3 Abs Immat Gran (auto) 0.03 (0.00-0.031) K/mm3 Absolute Neuts (auto) 5.9 (1.3-6.7) K/mm3 Absolute Nucleated RBC 0.000 (0.0-0.012) K/mm3 Nucleated RBC % 0.0 (0.0-0.2) % PT 14.2 (11.1-14.7) Seconds INR 1.1 APTT 33.2 (22.3-36.8) Seconds D-Dimer 0.30 (<0.48) ug/mL Sodium 137 (137-145) mmol/L Potassium 3.7 (3.4-5.0) mmol/L Chloride 102 (98-107) mmol/L Carbon Dioxide 29 (22-30) mmol/L Anion Gap 6 (4-12) mmol/L BUN 5 L (7-17) mg/dL Creatinine 0.69 L (0.7-1.0) mg/dL Estim Creat Clear Calc 133 ml/min Estimated GFR > 60 (59 - ) Glucose 93 (65-110) mg/dL Calcium 9.3 (8.4-10.2) mg/dL Total Bilirubin 0.4 (0.2-1.3) mg/dL AST 30 (14-36) U/L ALT 22 (6-35) U/L Alkaline Phosphatase 54 (38-126) U/L Troponin I < 0.012 < 0.012 (0.000-0.034) ng/mL NT-Pro-B Natriuret Pep < 20 (19.9-100) pg/mL Total Protein 7.4 (6.3-8.2) g/dL Albumin 4.3 (3.5-5.1) g/dL Lipase 66 (23-300) U/L Discharge Plan Discharge Clinical Impression: Chest wall pain Patient Disposition: Home Condition: Stable Instructions: Antibiotic Form, Chest Wall Pain (ED) Additional Instructions: You were seen for chest wall pain. Please use Motrin Tylenol as needed for pain. Please follow-up with your primary care physician in 3-5 days. If you develop new worsening symptoms return ED. Patient Language: Latvian Prescriptions: New ibuprofen 800 mg tablet 800 mg PO TID PRN (Reason: pain) 7 Days Qty: 21 0RF acetaminophen 500 mg tablet 1,000 mg PO TID PRN (Reason: ruperto) 7 Days Qty: 42 0RF No Action prochlorperazine maleate 10 mg tablet 10 mg PO Q8-10H PRN (Reason: Anxiety) promethazine 25 mg tablet 25 mg PO Q4-6H PRN (Reason: Nausea) ibuprofen 600 mg tablet 600 mg PO Q6-8H PRN (Reason: Pain) Slow Fe 142 mg (45 mg iron) Tablet Extended Release 142 mg PO BID 14 Days Qty: 28 0RF Rx Instructions: Take one tablet by mouth twice daily Follow-up/Referrals: Ashok Guthrie MD [Primary Care Provider, Hospitalist]
== END 2025-03-07 01:53 | disposition home or self-care (01) ==
PROVIDERS: Emergency Provider Emergency Medicine; PCP Internal Medicine
DX: R07.89 Other chest pain (principal); F41.0 Panic disorder [episodic paroxysmal anxiety]
CPT/HCPCS: 36415; 71046; 80053; 83690; 83880; 84484; 85025; 85380; 85610; 85730; 93005; 96374; 99284; A9270; J3360